=== PATIENT | male | born 1975 | race Asian ===

== ENCOUNTER 2021-08-21 07:23 | Inpatient (IN) | payer MEDICARE, MEDICAID ==
[2021-08-20] MEDS: ENOXAPARIN 40MG/0.4ML SYR SUBCUT SCH (21:00)
[~2021-08-21] VITALS: Ht 180.3 cm; Wt 138.9 kg
[2021-08-21] MEDS ORDERED: ACETAMINOPHEN 325MG TABLET PO ONE ×2 (07:45→09:45)
[2021-08-21] MEDS ORDERED: PIPERACILLIN/TAZ 3.375G PREMIX 50 ML IV ONE (07:45)
[2021-08-21] MEDS ORDERED: SODIUM CHLORIDE 0.9% 1,000 ML IV ONE (07:45)
[2021-08-21] MEDS ORDERED: VANCOMYCIN 1G PREMIX 200 ML IV ONE (07:45)
[2021-08-21 09:14] LABS: BASOPHILS % 0.4 % (0.0-2.0); EOSINOPHILS % 0.4 % (0.0-5.0); HEMATOCRIT. 34.2 % (42.0-52.0); HEMOGLOBIN. 11.9 g/dL (14.0-18.0); LYMPHOCYTES % 8.2 % (20.0-50.0); MEAN CORPUSCULAR HEMOGLOBIN 30.6 pg (28.0-32.0); MEAN CORPUSCULAR VOLUME 88.1 fL (80.0-94.0); MEAN PLATELET VOLUME 8.2 fl (7.4-10.4); MONOCYTES % 8.4 % (2.0-8.0); NEUTROPHILS % 82.6 % (40.0-76.0); PLATELET 126 x1000/uL (130-400); RED BLOOD CELL COUNT 3.88 mill/uL (4.7-6.1); RED CELL DISTRIBUTION WIDTH 14.6 % (11.6-14.6)
[2021-08-21] MEDS ORDERED: VANCOMYCIN 1GM PMX (XELLIA) 200 ML IV NR ×2 (09:15→16:00)
[2021-08-21 09:20] LABS: CHLORIDE 90 mEq/L (98-107)
[2021-08-21 11:27] LABS: CLARITY URINE CLOUDY (CLEAR); COLOR URINE YELLOW (YELLOW); KETONES URINE TRACE (NEGATIVE); LEUKOCYTE ESTERASE URINE NEGATIVE (NEGATIVE); NITRITE URINE NEGATIVE (NEGATIVE); OCCULT BLOOD URINE 2+ (NEGATIVE); PROTEIN URINE 3+ (NEGATIVE); SPECIFIC GRAVITY URINE 1.014 (1.005-1.030); UROBILINOGEN URINE 0.2 E.U./dL (0.2-1.0)
[2021-08-21] MEDS ORDERED: PIPERACILLIN/TAZ 3.375G PREMIX 50 ML IV SCH (14:30)
[2021-08-21] MEDS ORDERED: GUAIFENESIN 200MG/10ML SUGAR FREE UDC PO PRN (14:30)
[2021-08-21] MEDS ORDERED: DOCUSATE SODIUM 100MG CAPSULE PO PRN (14:30)
[2021-08-21] MEDS ORDERED: ZOLPIDEM TARTRATE 5MG TABLET PO PRN (14:30)
[2021-08-21] MEDS ORDERED: IPRATROPIUM/ALBUTEROL 0.5-3(2.5)MG/3ML NEB NEB PRN (14:30)
[2021-08-21] MEDS ORDERED: NITROGLYCERIN 0.4MG TABLET SL SL PRN (14:30)
[2021-08-21] MEDS ORDERED: DIPHENHYDRAMINE 50MG/ML VIAL IV PRN (14:30)
[2021-08-21] MEDS ORDERED: MAGNESIUM/ALUMINUM HYDROXIDE/SIMETHICONE 30ML UDC PO PRN (14:30)
[2021-08-21] MEDS ORDERED: ONDANSETRON HCL 4MG/2ML INJ IV PRN (14:30)
[2021-08-21 14:48] LABS: HEPATITIS B SURFACE ANTIGEN NEGATIVE
[2021-08-21 16:42] LABS: FOLIC ACID (FOLATE) SERUM 9.6 ng/mL (>5.38)
[2021-08-21] MEDS ORDERED: HYDRALAZINE 20MG/ML VIAL IV PRN (19:45)
[2021-08-21] MEDS ORDERED: DEXTROSE 50% WATER 50ML SYRINGE IV PRN (20:30)
[2021-08-21] MEDS ORDERED: PIPERACILLIN/TAZOBACTAM 3.375 G in DEXTROSE 5% WATER 50 ML IV SCH (21:00)
[2021-08-21 22:45] LABS: CREATINE KINASE 427 IU/L (39-308); CREATINE KINASE MB FRACTION < 1.0 ng/mL (0.5-3.6)
[2021-08-22] MEDS: INSULIN LISPRO 100 UNITS/ML SUBCUT SCH ×5 (00:23→21:24)
[2021-08-22] MEDS: ACETAMINOPHEN 325MG TABLET PO PRN ×4 (00:24→21:25)
[2021-08-22] MEDS: ASCORBIC ACID 500 MG TABLET PO SCH ×3 (00:24→21:25)
[2021-08-22] MEDS: FAMOTIDINE 20MG TABLET PO SCH ×2 (00:25→21:25)
[2021-08-22] MEDS: BLOOD SUGAR DIAGNOSTIC STRIP TEST SCH ×5 (00:25→21:10)
[2021-08-22 08:00] VITALS: BP 105/57
[2021-08-22] MEDS: ASPIRIN 325MG EC TABLET PO SCH (08:24)
[2021-08-22] MEDS: ZINC SULFATE 220 MG ( 50 ) CAPSULE PO SCH (08:24)
[2021-08-22] MEDS: SEVELAMER CARBONATE 800 MG TABLET PO SCH ×3 (08:25→17:10)
[2021-08-22] MEDS: CHOLECALCIFEROL (D3) 1000 UNIT TABLET PO SCH (08:25)
[2021-08-22 09:09] LABS: *AMPHETAMINES SCREEN URINE NEGATIVE (NEGATIVE); *BARBITURATES SCREEN URINE NEGATIVE (NEGATIVE); *BENZODIAZEPINES SCREEN URINE NEGATIVE (NEGATIVE); *COCAINE SCREEN URINE NEGATIVE (NEGATIVE); CANNABINOID URINE SCREEN NEGATIVE (NEGATIVE); METHADONE URINE SCREEN NEGATIVE (NEGATIVE); OPIATES URINE SCREEN NEGATIVE (NEGATIVE); PHENCYCLIDINE URINE SCREEN NEGATIVE (NEGATIVE)
[2021-08-22 12:00] VITALS: BP_SYST 110; BP_SYST 116; BP_DIAS 74; BP_DIAS 80
[2021-08-22 12:05] LABS: CHLORIDE 98 mEq/L (98-107)
[2021-08-22 12:15] LABS: PHOSPHORUS 2.7 mg/dL (2.5-4.9)
[2021-08-22 12:18] LABS: CREATINE KINASE 276 IU/L (39-308); CREATINE KINASE MB FRACTION < 1.0 ng/mL (0.5-3.6)
[2021-08-22 13:40] LABS: HEMATOCRIT. 31.1 % (42.0-52.0); HEMOGLOBIN. 10.2 g/dL (14.0-18.0); MEAN CORPUSCULAR HEMOGLOBIN 30.5 pg (28.0-32.0); MEAN CORPUSCULAR VOLUME 93.4 fL (80.0-94.0); MEAN PLATELET VOLUME 8.4 fl (7.4-10.4); PLATELET 118 x1000/uL (130-400); RED BLOOD CELL COUNT 3.33 mill/uL (4.7-6.1); RED CELL DISTRIBUTION WIDTH 14.5 % (11.6-14.6)
[2021-08-22] MEDS: ENOXAPARIN 40MG/0.4ML SYR SUBCUT SCH (14:43)
[2021-08-22 16:25] VITALS: BP 116/80
[2021-08-22 16:53] LABS: PLATELET ESTIMATE DECREASED
[2021-08-22 20:00] VITALS: BP 122/61
[2021-08-23] VITALS: BP 119/76
[2021-08-23] MEDS: ACETAMINOPHEN 325MG TABLET PO PRN ×3 (01:26→23:48)
[2021-08-23 04:00] VITALS: BP 107/59
[2021-08-23] MEDS: BLOOD SUGAR DIAGNOSTIC STRIP TEST SCH ×4 (06:31→20:28)
[2021-08-23] MEDS: INSULIN LISPRO 100 UNITS/ML SUBCUT SCH ×4 (06:31→22:17)
[2021-08-23] MEDS: SEVELAMER CARBONATE 800 MG TABLET PO SCH ×3 (06:56→17:46)
[2021-08-23] MEDS ORDERED: LIDOCAINE HCL 1% 20ML VIAL (Pyxis) INJ ONE ×3 (07:19→08:58)
[2021-08-23] MEDS ORDERED: POLYMYXIN B SULFATE 500000 UNITS/VIAL ONE (07:52)
[2021-08-23] MEDS ORDERED: BUPIVACAINE HCL/PF 0.5% (5MG/ML) 30ML ONE (07:53)
[2021-08-23] MEDS ORDERED: BACITRACIN 15GM TUBE TOP ONE (07:53)
[2021-08-23] MEDS ORDERED: HEPARIN SODIUM 1,000 UNIT/1ML VIAL IV ONE (07:53)
[2021-08-23] MEDS ORDERED: THROMBIN (BOVINE) 5000 UNITS/VIAL TOP ONE (07:53)
[2021-08-23] MEDS ORDERED: ONDANSETRON HCL 4MG/2ML INJ ONE (08:58)
[2021-08-23] MEDS ORDERED: PROPOFOL 200MG/20ML VIAL IV ONE (08:58)
[2021-08-23] MEDS ORDERED: DEXAMETHASONE 4MG/ML 1ML VIAL ONE (08:58)
[2021-08-23] MEDS ORDERED: FENTANYL CITRATE/PF 50MCG/ML 2ML VIAL ONE (08:58)
[2021-08-23] MEDS ORDERED: MIDAZOLAM HCL 2 MG/2 ML VIAL ONE (08:59)
[2021-08-23] MEDS ORDERED: NALOXONE HCL 0.4MG/ML VIAL IV PRN (09:00)
[2021-08-23] MEDS: ZINC SULFATE 220 MG ( 50 ) CAPSULE PO SCH (09:00)
[2021-08-23] MEDS: ASPIRIN 325MG EC TABLET PO SCH (09:00)
[2021-08-23] MEDS: ASCORBIC ACID 500 MG TABLET PO SCH ×2 (09:00→20:28)
[2021-08-23] MEDS: CHOLECALCIFEROL (D3) 1000 UNIT TABLET PO SCH (09:00)
[2021-08-23] MEDS ORDERED: HYDROMORPHONE HCL/PF 2MG/ML CPJ IV PRN ×2 (09:00→09:45)
[2021-08-23] MEDS ORDERED: ROPIVACAINE HCL 10MG/ML 20 ML VIAL EPI ONE (09:43)
[2021-08-23] MEDS ORDERED: LABETALOL 5MG/ML SYR 20 MG/4 ML SYRINGE IV PRN (09:45)
[2021-08-23] MEDS ORDERED: MEPERIDINE HCL/PF 25MG/ML CPJ IV PRN (09:45)
[2021-08-23] MEDS ORDERED: ONDANSETRON HCL 4MG/2ML INJ IV PRN (09:45)
[2021-08-23 12:00] VITALS: BP 115/51
[2021-08-23] MEDS: ENOXAPARIN 40MG/0.4ML SYR SUBCUT SCH (15:00)
[2021-08-23 16:00] VITALS: BP 175/99
[2021-08-23] MEDS ORDERED: VANCOMYCIN 1GM PMX (XELLIA) 200 ML IV NR (18:00)
[2021-08-23 20:00] VITALS: BP 134/70
[2021-08-23] MEDS: FAMOTIDINE 20MG TABLET PO SCH (20:28)
[2021-08-23] MEDS ORDERED: INSULIN GLARGINE 100 UNITS/ML SUBCUT SCH (22:00)
[2021-08-23] MEDS: INSULIN GLARGINE 100 UNITS/ML SUBCUT SCH (22:17)
[2021-08-24] VITALS: BP 121/67
[2021-08-24 04:00] VITALS: BP 118/58
[2021-08-24] MEDS: BLOOD SUGAR DIAGNOSTIC STRIP TEST SCH ×4 (06:36→21:27)
[2021-08-24] MEDS: SEVELAMER CARBONATE 800 MG TABLET PO SCH ×3 (07:45→17:10)
[2021-08-24] MEDS: INSULIN LISPRO 100 UNITS/ML SUBCUT SCH ×4 (07:47→22:05)
[2021-08-24 08:00] VITALS: BP 130/72
[2021-08-24] MEDS: ZINC SULFATE 220 MG ( 50 ) CAPSULE PO SCH (10:48)
[2021-08-24] MEDS: CHOLECALCIFEROL (D3) 1000 UNIT TABLET PO SCH (10:48)
[2021-08-24] MEDS: ASCORBIC ACID 500 MG TABLET PO SCH ×2 (10:48→22:02)
[2021-08-24] MEDS: ASPIRIN 325MG EC TABLET PO SCH (10:49)
[2021-08-24 12:00] VITALS: BP 129/74
[2021-08-24 16:00] VITALS: BP 119/69
[2021-08-24] MEDS: ENOXAPARIN 40MG/0.4ML SYR SUBCUT SCH ×2 (18:39→18:57)
[2021-08-24] MEDS: CEFAZOLIN 1000MG PREMIX 50 ML IV SCH (18:46)
[2021-08-24 20:00] VITALS: BP 134/70
[2021-08-24] MEDS: FAMOTIDINE 20MG TABLET PO SCH (22:02)
[2021-08-24] MEDS: INSULIN GLARGINE 100 UNITS/ML SUBCUT SCH (22:05)
[2021-08-25] VITALS: BP 120/74
[2021-08-25 04:00] VITALS: BP 123/79
[2021-08-25] MEDS: CEFAZOLIN 1000MG PREMIX 50 ML IV SCH (06:02)
[2021-08-25] MEDS: BLOOD SUGAR DIAGNOSTIC STRIP TEST SCH ×4 (06:02→21:43)
[2021-08-25] MEDS: SEVELAMER CARBONATE 800 MG TABLET PO SCH ×3 (07:06→17:10)
[2021-08-25] MEDS: INSULIN LISPRO 100 UNITS/ML SUBCUT SCH ×2 (07:06→21:52)
[2021-08-25 07:40] LABS: BASOPHILS % 0.7 % (0.0-2.0); EOSINOPHILS % 0.9 % (0.0-5.0); HEMATOCRIT. 27.7 % (42.0-52.0); HEMOGLOBIN. 9.2 g/dL (14.0-18.0); MEAN CORPUSCULAR HEMOGLOBIN 30.9 pg (28.0-32.0); MEAN CORPUSCULAR VOLUME 92.8 fL (80.0-94.0); MEAN PLATELET VOLUME 8.2 fl (7.4-10.4); MONOCYTES % 11.2 % (2.0-8.0); NEUTROPHILS % 67.2 % (40.0-76.0); PLATELET 261 x1000/uL (130-400); RED BLOOD CELL COUNT 2.98 mill/uL (4.7-6.1); RED CELL DISTRIBUTION WIDTH 14.9 % (11.6-14.6)
[2021-08-25 08:00] VITALS: BP 114/70
[2021-08-25] MEDS ORDERED: CEFAZOLIN 2,000 MG in DEXT 5% WATER 100 ML IV SCH (09:00)
[2021-08-25] MEDS: ASCORBIC ACID 500 MG TABLET PO SCH ×2 (09:24→20:53)
[2021-08-25] MEDS: ASPIRIN 325MG EC TABLET PO SCH (09:24)
[2021-08-25] MEDS: ZINC SULFATE 220 MG ( 50 ) CAPSULE PO SCH (09:24)
[2021-08-25] MEDS: CHOLECALCIFEROL (D3) 1000 UNIT TABLET PO SCH (09:25)
[2021-08-25] MEDS ORDERED: TETRACAINE/BENZOCAINE/BUTAMBEN 20 GM SPRAY MM ONE (10:57)
[2021-08-25] MEDS ORDERED: FENTANYL CITRATE/PF 50MCG/ML 2ML VIAL ONE ×2 (10:57→12:23)
[2021-08-25] MEDS ORDERED: LIDOCAINE HCL 2% JELLY 5ML ONE (10:57)
[2021-08-25] MEDS ORDERED: MIDAZOLAM HCL 5 MG/5 ML VIAL ONE (10:58)
[2021-08-25 12:00] VITALS: BP 126/78
[2021-08-25 16:00] VITALS: BP 168/97
[2021-08-25 20:00] VITALS: BP 170/86
[2021-08-25] MEDS: FAMOTIDINE 20MG TABLET PO SCH (20:53)
[2021-08-25] MEDS: ACETAMINOPHEN 325MG TABLET PO PRN (20:54)
[2021-08-25] MEDS: CLONIDINE 0.1MG TABLET PO PRN (21:00)
[2021-08-25 21:41] LABS: HEPATITIS B SURFACE ANTIGEN NEGATIVE
[2021-08-25] MEDS: INSULIN GLARGINE 100 UNITS/ML SUBCUT SCH (21:53)
[2021-08-26] VITALS: BP 117/62
[2021-08-26 04:00] VITALS: BP 124/68
[2021-08-26] MEDS: ACETAMINOPHEN 325MG TABLET PO PRN ×3 (04:11→20:41)
[2021-08-26] MEDS ORDERED: CALC667C PO (05:20)
[2021-08-26] MEDS ORDERED: ATOR-2 PO (05:20)
[2021-08-26] MEDS ORDERED: FURO40TA5 PO (05:20)
[2021-08-26] MEDS ORDERED: METO-385 PO (05:20)
[2021-08-26] MEDS ORDERED: ASPI-1160 PO (05:20)
[2021-08-26] MEDS: CEFAZOLIN 1000MG PREMIX 50 ML IV SCH ×2 (05:59→17:10)
[2021-08-26] MEDS: BLOOD SUGAR DIAGNOSTIC STRIP TEST SCH ×4 (06:05→20:31)
[2021-08-26] MEDS: SEVELAMER CARBONATE 800 MG TABLET PO SCH ×3 (06:44→17:00)
[2021-08-26] MEDS: INSULIN LISPRO 100 UNITS/ML SUBCUT SCH ×4 (06:45→20:50)
[2021-08-26 08:00] VITALS: BP 130/69
[2021-08-26] MEDS: CHOLECALCIFEROL (D3) 1000 UNIT TABLET PO SCH (08:09)
[2021-08-26] MEDS: ZINC SULFATE 220 MG ( 50 ) CAPSULE PO SCH (08:09)
[2021-08-26] MEDS: ASCORBIC ACID 500 MG TABLET PO SCH ×2 (08:09→20:41)
[2021-08-26] MEDS: ASPIRIN 325MG EC TABLET PO SCH (08:09)
[2021-08-26 12:00] VITALS: BP 133/75
[2021-08-26] MEDS: ENOXAPARIN 40MG/0.4ML SYR SUBCUT SCH (15:23)
[2021-08-26 16:00] VITALS: BP 146/75
[2021-08-26 20:00] VITALS: BP 150/73
[2021-08-26] MEDS: FAMOTIDINE 20MG TABLET PO SCH (20:41)
[2021-08-26] MEDS: INSULIN GLARGINE 100 UNITS/ML SUBCUT SCH (21:59)
[2021-08-27] VITALS: BP 147/47
[2021-08-27 04:00] VITALS: BP 159/92
[2021-08-27] MEDS: ACETAMINOPHEN 325MG TABLET PO PRN ×3 (04:21→18:50)
[2021-08-27] MEDS: BLOOD SUGAR DIAGNOSTIC STRIP TEST SCH ×4 (05:59→20:24)
[2021-08-27] MEDS: CLONIDINE 0.1MG TABLET PO PRN ×2 (06:11→22:04)
[2021-08-27] MEDS: CEFAZOLIN 1000MG PREMIX 50 ML IV SCH ×2 (06:11→17:13)
[2021-08-27] MEDS: INSULIN LISPRO 100 UNITS/ML SUBCUT SCH ×4 (06:31→22:07)
[2021-08-27 08:00] VITALS: BP 133/66
[2021-08-27 08:07] LABS: BASOPHILS % 0.4 % (0.0-2.0); EOSINOPHILS % 1.4 % (0.0-5.0); HEMATOCRIT. 26.9 % (42.0-52.0); HEMOGLOBIN. 9.1 g/dL (14.0-18.0); LYMPHOCYTES % 12.9 % (20.0-50.0); MEAN PLATELET VOLUME 7.1 fl (7.4-10.4); MONOCYTES % 9.1 % (2.0-8.0); NEUTROPHILS % 76.2 % (40.0-76.0); PLATELET 336 x1000/uL (130-400); RED BLOOD CELL COUNT 2.93 mill/uL (4.7-6.1); RED CELL DISTRIBUTION WIDTH 14.3 % (11.6-14.6)
[2021-08-27] MEDS: CHOLECALCIFEROL (D3) 1000 UNIT TABLET PO SCH (08:17)
[2021-08-27] MEDS: ASPIRIN 325MG EC TABLET PO SCH (08:17)
[2021-08-27] MEDS: SEVELAMER CARBONATE 800 MG TABLET PO SCH ×3 (08:17→17:13)
[2021-08-27] MEDS: ASCORBIC ACID 500 MG TABLET PO SCH ×2 (08:17→22:04)
[2021-08-27] MEDS: ZINC SULFATE 220 MG ( 50 ) CAPSULE PO SCH (08:27)
[2021-08-27 12:00] VITALS: BP 130/80
[2021-08-27] MEDS: TRAMADOL 50MG TABLET PO PRN (12:03)
[2021-08-27] MEDS: ENOXAPARIN 40MG/0.4ML SYR SUBCUT SCH (14:53)
[2021-08-27 16:00] VITALS: BP 121/79
[2021-08-27 20:00] VITALS: BP 158/100
[2021-08-27] MEDS: FAMOTIDINE 20MG TABLET PO SCH (22:04)
[2021-08-27] MEDS: INSULIN GLARGINE 100 UNITS/ML SUBCUT SCH (22:05)
[2021-08-28] VITALS: BP 152/78
[2021-08-28 04:00] VITALS: BP 154/83
[2021-08-28] MEDS: ACETAMINOPHEN 325MG TABLET PO PRN ×4 (05:11→18:48)
[2021-08-28] MEDS: BLOOD SUGAR DIAGNOSTIC STRIP TEST SCH ×4 (05:48→21:43)
[2021-08-28] MEDS: INSULIN LISPRO 100 UNITS/ML SUBCUT SCH ×4 (05:48→21:00)
[2021-08-28] MEDS: CEFAZOLIN 1000MG PREMIX 50 ML IV SCH (06:21)
[2021-08-28] MEDS: SEVELAMER CARBONATE 800 MG TABLET PO SCH ×3 (07:10→18:12)
[2021-08-28 08:00] VITALS: BP 131/69
[2021-08-28] MEDS: ASCORBIC ACID 500 MG TABLET PO SCH ×2 (08:57→21:00)
[2021-08-28] MEDS: ASPIRIN 325MG EC TABLET PO SCH (08:57)
[2021-08-28] MEDS: ZINC SULFATE 220 MG ( 50 ) CAPSULE PO SCH (08:57)
[2021-08-28] MEDS: CHOLECALCIFEROL (D3) 1000 UNIT TABLET PO SCH (08:57)
[2021-08-28 12:00] VITALS: BP 141/78
[2021-08-28 16:00] VITALS: BP 150/80
[2021-08-28] MEDS: ENOXAPARIN 40MG/0.4ML SYR SUBCUT SCH (17:02)
[2021-08-28 20:00] VITALS: BP 169/75
[2021-08-28] MEDS: FAMOTIDINE 20MG TABLET PO SCH (21:00)
[2021-08-29] VITALS: BP 157/78
[2021-08-29] MEDS: INSULIN GLARGINE 100 UNITS/ML SUBCUT SCH ×2 (00:26→20:57)
[2021-08-29 04:00] VITALS: BP 147/78
[2021-08-29] MEDS: CEFAZOLIN 1000MG PREMIX 50 ML IV SCH ×3 (05:48→17:35)
[2021-08-29] MEDS: ACETAMINOPHEN 325MG TABLET PO PRN ×2 (05:48→12:17)
[2021-08-29] MEDS: BLOOD SUGAR DIAGNOSTIC STRIP TEST SCH ×4 (05:48→20:52)
[2021-08-29] MEDS: INSULIN LISPRO 100 UNITS/ML SUBCUT SCH ×4 (06:18→20:58)
[2021-08-29 08:00] VITALS: BP 152/71
[2021-08-29] MEDS: ZINC SULFATE 220 MG ( 50 ) CAPSULE PO SCH (09:22)
[2021-08-29] MEDS: ASCORBIC ACID 500 MG TABLET PO SCH ×2 (09:22→20:52)
[2021-08-29] MEDS: CHOLECALCIFEROL (D3) 1000 UNIT TABLET PO SCH (09:22)
[2021-08-29] MEDS: SEVELAMER CARBONATE 800 MG TABLET PO SCH ×3 (09:22→17:35)
[2021-08-29] MEDS: ASPIRIN 325MG EC TABLET PO SCH (09:22)
[2021-08-29 12:00] VITALS: BP 158/84
[2021-08-29] MEDS: ENOXAPARIN 40MG/0.4ML SYR SUBCUT SCH (14:53)
[2021-08-29 16:00] VITALS: BP 163/87
[2021-08-29 16:38] LABS: HEPATITIS B SURFACE ANTIGEN NEGATIVE
[2021-08-29 20:00] VITALS: BP 159/78
[2021-08-29] MEDS: FAMOTIDINE 20MG TABLET PO SCH (20:52)
[2021-08-30] VITALS: BP 145/69
[2021-08-30 04:00] VITALS: BP 142/80
[2021-08-30] MEDS: BLOOD SUGAR DIAGNOSTIC STRIP TEST SCH ×4 (06:23→21:31)
[2021-08-30] MEDS: CEFAZOLIN 1000MG PREMIX 50 ML IV SCH ×2 (06:23→17:20)
[2021-08-30] MEDS: INSULIN LISPRO 100 UNITS/ML SUBCUT SCH ×4 (06:23→21:31)
[2021-08-30] MEDS: SEVELAMER CARBONATE 800 MG TABLET PO SCH ×3 (06:23→17:20)
[2021-08-30] MEDS: TRAMADOL 50MG TABLET PO PRN ×2 (07:27→16:14)
[2021-08-30 08:15] VITALS: BP 163/82
[2021-08-30] MEDS: ZINC SULFATE 220 MG ( 50 ) CAPSULE PO SCH (08:56)
[2021-08-30] MEDS: ASCORBIC ACID 500 MG TABLET PO SCH ×2 (08:56→21:29)
[2021-08-30] MEDS: ASPIRIN 325MG EC TABLET PO SCH (08:56)
[2021-08-30] MEDS: CHOLECALCIFEROL (D3) 1000 UNIT TABLET PO SCH (08:56)
[2021-08-30] MEDS: ACETAMINOPHEN 325MG TABLET PO PRN ×2 (08:57→21:30)
[2021-08-30 11:58] VITALS: BP 167/91
[2021-08-30] MEDS: HYDROCODONE/ACETAMINOPHEN 5/325MG TABLET PO PRN (13:39)
[2021-08-30 16:00] VITALS: BP 156/80
[2021-08-30] MEDS: ENOXAPARIN 40MG/0.4ML SYR SUBCUT SCH (16:14)
[2021-08-30 20:00] VITALS: BP 159/82
[2021-08-30] MEDS ORDERED: EPOETIN ALFA-EPBX 10,000 UNIT/ML VIAL SUBCUT SCH (21:00)
[2021-08-30] MEDS: FAMOTIDINE 20MG TABLET PO SCH (21:29)
[2021-08-30] MEDS: INSULIN GLARGINE 100 UNITS/ML SUBCUT SCH (21:32)
[2021-08-31] VITALS (8 sets, daily range): BP systolic 125–168; BP diastolic 40–91
[2021-08-31] MEDS: TRAMADOL 50MG TABLET PO PRN ×2 (05:11→13:57)
[2021-08-31] MEDS: CEFAZOLIN 1000MG PREMIX 50 ML IV SCH ×2 (06:22→18:00)
[2021-08-31] MEDS: INSULIN LISPRO 100 UNITS/ML SUBCUT SCH ×4 (06:23→21:11)
[2021-08-31] MEDS: BLOOD SUGAR DIAGNOSTIC STRIP TEST SCH ×4 (06:23→20:47)
[2021-08-31] MEDS: SEVELAMER CARBONATE 800 MG TABLET PO SCH ×3 (06:24→17:10)
[2021-08-31] MEDS: ASCORBIC ACID 500 MG TABLET PO SCH ×2 (08:32→20:57)
[2021-08-31] MEDS: CHOLECALCIFEROL (D3) 1000 UNIT TABLET PO SCH (08:32)
[2021-08-31] MEDS: ASPIRIN 325MG EC TABLET PO SCH (08:32)
[2021-08-31] MEDS: ZINC SULFATE 220 MG ( 50 ) CAPSULE PO SCH (08:32)
[2021-08-31] MEDS: HYDROCODONE/ACETAMINOPHEN 5/325MG TABLET PO PRN (08:33)
[2021-08-31] MEDS ORDERED: VANCOMYCIN 1G PREMIX 200 ML IV SCH (13:00)
[2021-08-31] MEDS ORDERED: VANCOMYCIN 2,000 MG in DEXT 5% WATER 500 ML IV NR (14:30)
[2021-08-31] MEDS: ENOXAPARIN 40MG/0.4ML SYR SUBCUT SCH (15:00)
[2021-08-31] MEDS: FAMOTIDINE 20MG TABLET PO SCH (20:57)
== END 2021-08-31 21:40 | disposition home health service (06) | DRG 871 ==
LOC: ER 07:41 → MICUSO 11:14 → SUPCPDRO 14:20 → 7EST 08-22 04:16
PROVIDERS: ADMIT Internal Medicine; ATTEND Internal Medicine
PROC: 5A1D70Z Performance of Urinary Filtration, Intermittent, Less than 6 Hours Per Day (ICD-10-PCS; 2021-08-21)
PROC: 0XJ90ZZ Inspection of Left Upper Arm, Open Approach (ICD-10-PCS; principal; 2021-08-23)
PROC: 02HV33Z Insertion of Infusion Device into Superior Vena Cava, Percutaneous Approach (ICD-10-PCS; 2021-08-23)
PROC: B518ZZA Fluoroscopy of Superior Vena Cava, Guidance (ICD-10-PCS; 2021-08-23)
PROC: B518ZZA Fluoroscopy of Superior Vena Cava, Guidance (ICD-10-PCS; 2021-08-23)
PROC: 5A1D70Z Performance of Urinary Filtration, Intermittent, Less than 6 Hours Per Day (ICD-10-PCS; 2021-08-23)
PROC: 5A1D70Z Performance of Urinary Filtration, Intermittent, Less than 6 Hours Per Day (ICD-10-PCS; 2021-08-25)
PROC: 5A1D70Z Performance of Urinary Filtration, Intermittent, Less than 6 Hours Per Day (ICD-10-PCS; 2021-08-28)
PROC: 5A1D70Z Performance of Urinary Filtration, Intermittent, Less than 6 Hours Per Day (ICD-10-PCS; 2021-08-30)
DX: A41.01 Sepsis due to Methicillin susceptible Staphylococcus aureus (principal); J18.9 Pneumonia, unspecified organism; N18.6 End stage renal disease; E44.0 Moderate protein-calorie malnutrition; E87.1 Hypo-osmolality and hyponatremia; I13.2 Hypertensive heart and chronic kidney disease with heart failure and with stage 5 chronic kidney disease, or end stage renal disease; Z68.41 Body mass index [BMI] 40.0-44.9, adult; R65.20 Severe sepsis without septic shock; D63.8 Anemia in other chronic diseases classified elsewhere; E11.22 Type 2 diabetes mellitus with diabetic chronic kidney disease; E11.65 Type 2 diabetes mellitus with hyperglycemia; Z20.822 Contact with and (suspected) exposure to COVID-19; E66.01 Morbid (severe) obesity due to excess calories; E78.5 Hyperlipidemia, unspecified; F10.21 Alcohol dependence, in remission; I50.9 Heart failure, unspecified; Y83.2 Surgical operation with anastomosis, bypass or graft as the cause of abnormal reaction of the patient, or of later complication, without mention of misadventure at the time of the procedure; Z99.2 Dependence on renal dialysis; Z79.4 Long term (current) use of insulin; Y92.89 Other specified places as the place of occurrence of the external cause
CPT/HCPCS: 36415; 36556; 71045; 76937; 77001; 78806; 80048; 80053; 80061; 80202; 80305; 81003; 82550; 82553; 82607; 82746; 82962; 83036; 83540; 83550; 83605; 83735; 84100; 84145; 84443; 84484; 85025; 85651; 86140; 86705; 86709; 86803; 87070; 87075; 87077; 87186; 87340; 87426; 93005; 93306; 93312; 93970; 97162; 97165; 99291; A9547; C1752; C1769; J0360; J0690; J0885; J1100; J1170; J1644; J1650; J1815; J2250; J2405; J2543; J2704; J2795; J3010; J3370; J3490; J7030; J7060; J7120

== ENCOUNTER 2023-12-27 08:58 | Inpatient (IN) | payer MEDICARE, MEDICAID ==
[~2023-12-27] VITALS: Ht 177.8 cm; Wt 96.0 kg
[~2023-12-27 08:58] MED LIST: ASPI-1160 PO; ATOR-2 PO; CALC667C PO; FURO40TA5 PO; METO-385 PO
[2023-12-27 09:03] VITALS: O2SAT 92
[2023-12-27] MEDS: PIPERACILLIN/TAZO 3.375G/50ML 50 ML IV ONE (09:24)
[2023-12-27] MEDS: SODIUM CHLORIDE 0.9% 1000ML BAG (SEPSIS BOLUS) IV ONE (09:24)
[2023-12-27] MEDS: VANCOMYCIN 1G PREMIX 200 ML IV ONE (09:58)
[2023-12-27 10:00] LABS: CHLORIDE 92 mEq/L (98-107); SODIUM 132 mEq/L (136-145)
[2023-12-27 10:01] LABS: CALCIUM 9.1 mg/dL (8.7-10.4); CARBON DIOXIDE 30 mEq/L (21-32)
[2023-12-27 10:02] LABS: HEMOGLOBIN. 15.7 g/dL (14.0-18.0); MEAN CORPUSCULAR HEMOGLOBIN 31.1 pg (28.0-32.0); MEAN CORPUSCULAR VOLUME 97.4 fL (80.0-94.0); MEAN PLATELET VOLUME 7.4 fl (7.4-10.4); PLATELET 187 x1000/uL (130-400); RED BLOOD CELL COUNT 5.03 mill/uL (4.7-6.1); RED CELL DISTRIBUTION WIDTH 15.9 % (11.6-14.6); WHITE BLOOD COUNT 8.4 x1000/uL (4.5-11.0)
[2023-12-27 10:04] LABS: DIFFERENTIAL COMMENT 1
[2023-12-27 10:06] LABS: GLUCOSE 185 mg/dL (70-105); UREA NITROGEN BLOOD 22 mg/dL (9-23)
[2023-12-27 10:07] LABS: LACTIC ACID 2.8 mmol/L (0.4-2.0); TROPONIN I HIGH SENSITIVITY 23 ng/L (3.0-53)
[2023-12-27 10:14] LABS: CREATININE 7.7 mg/dL (0.6-1.3)
[2023-12-27 10:31] LABS: ALANINE AMINOTRANSFERASE 28 IU/L (10-49); ALBUMIN 4.4 g/dL (3.2-4.8); ASPARTATE AMINOTRANSFERASE 41 IU/L (<34); BILIRUBIN DIRECT 0.4 mg/dL (<=3.0)
[2023-12-27 10:32] LABS: BILIRUBIN TOTAL 1.3 mg/dL (0.1-1.0); PROTEIN TOTAL 8.6 g/dL (6.0-8.3)
[2023-12-27 11:42] VITALS: PULSE 115; RESP 11; TEMP 36.39180; O2SAT 97
[2023-12-27 12:08] VITALS: BP 135/81
[2023-12-27 12:37] LABS: CLARITY URINE TURBID (CLEAR); COLOR URINE DARK YELLOW (YELLOW); GLUCOSE URINE 2+ (NEGATIVE); KETONES URINE TRACE (NEGATIVE); LEUKOCYTE ESTERASE URINE 1+ (NEGATIVE); NITRITE URINE NEGATIVE (NEGATIVE); OCCULT BLOOD URINE 3+ (NEGATIVE); PH URINE 5.5 (4.5-8.0); PROTEIN URINE 3+ (NEGATIVE); SPECIFIC GRAVITY URINE 1.022 (1.005-1.030)
[2023-12-27 12:45] LABS: INR 1.1
[2023-12-27 13:12] LABS: SQUAMOUS EPITHELIAL CELL URINE FEW /lpf (RARE/1+); YEAST URINE NONE SEEN
[2023-12-27 13:13] LABS: BACTERIA URINE 3+; WBC URINE 15-25 /hpf (0-2)
[2023-12-27 13:49] LABS: NUCLEATED RED BLOOD CELLS 2 /100 WBC; PLATELET ESTIMATE NORMAL
== END 2023-12-27 15:56 | disposition left against medical advice (07) | DRG 872 ==
LOC: ER 09:23 → 5WST 12:29 → EDBEDREQTM 12:33 → EDBEDREQ 12:33
PROVIDERS: ADMIT Internal Medicine; ATTEND Internal Medicine
DX: A41.9 Sepsis, unspecified organism (principal); E11.22 Type 2 diabetes mellitus with diabetic chronic kidney disease; Z53.29 Procedure and treatment not carried out because of patient's decision for other reasons; R65.20 Severe sepsis without septic shock; I12.9 Hypertensive chronic kidney disease with stage 1 through stage 4 chronic kidney disease, or unspecified chronic kidney disease; N18.9 Chronic kidney disease, unspecified
CPT/HCPCS: 36415; 71045; 80048; 80076; 81003; 83605; 84145; 84484; 85025; 87077; 87186; 93005; 99291; J2543; J3370; J7030